=== PATIENT | male | born 1955 | race Two or more races ===

== ENCOUNTER 2019-04-11 23:29 | Emergency (ER) | payer OTHER ==
[2019-04-11 23:42] VITALS: BP 170/99; PULSE 78; TEMP 97.9; BMI 27.3
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
[2019-04-12] MEDS ORDERED: morphine CARPU-JECT 4 MG/1 ML DISP.SYRIN IVPUSH ONE (00:05)
[2019-04-12] MEDS ORDERED: DIPHTH,PERTUSS(ACELL),TET 0.5 ML DISP.SYRIN IM ONE ×3 (00:05→00:47)
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
[2019-04-12] MEDS ORDERED: morphine SULFATE 4 MG/ML VIAL ONE (00:23)
[2019-04-12] MEDS ORDERED: LIDOCAINE HCL 1%, 10 MG/ML (20ML VIAL) ONE (00:45)
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
== END 2019-04-12 03:00 | disposition home or self-care (01) ==
LOC: JER 23:29
PROC: 3E0234Z Introduction of Serum, Toxoid and Vaccine into Muscle, Percutaneous Approach (ICD-10-PCS; principal; 2019-04-11)
PROC: 3E033NZ Introduction of Analgesics, Hypnotics, Sedatives into Peripheral Vein, Percutaneous Approach (ICD-10-PCS; 2019-04-11)
PROC: 0HQ1XZZ Repair Face Skin, External Approach (ICD-10-PCS; 2019-04-11)
DX: S01.81XA Laceration without foreign body of other part of head, initial encounter (principal); Y04.2XXA Assault by strike against or bumped into by another person, initial encounter; Y93.89 Activity, other specified; Y92.481 Parking lot as the place of occurrence of the external cause
CPT/HCPCS: 70450-TC; 70486-TC; 90715; 99282-25

== ENCOUNTER 2019-11-20 14:12 | Emergency (ER) | payer OTHER ==
[2019-11-20 14:32] VITALS: BMI 26.6
[2019-11-20] MEDS ORDERED: DIPHTH,PERTUSS(ACELL),TET 0.5 ML DISP.SYRIN IM ONE ×2 (14:32→14:39)
[2019-11-20] MEDS ORDERED: ACETAMINOPHEN 500 MG TABLET (FP) PO ONE (14:39)
[2019-11-20] MEDS ORDERED: BACITRACIN 0.9 GM PACKET TP ONE (14:40)
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
[2019-11-20] MEDS ORDERED: ACETAMINOPHEN 325 MG TABLET (FP) ONE (14:45)
[2019-11-20] MEDS ORDERED: BACITRACIN 0.9 GM PACKET ONE (14:45)
[2019-11-20 16:58] VITALS: BP 143/67; PULSE 87; TEMP 98
== END 2019-11-20 16:59 | disposition home or self-care (01) ==
LOC: SUPCPDRO 14:12 → JER 14:12
PROC: 3E0234Z Introduction of Serum, Toxoid and Vaccine into Muscle, Percutaneous Approach (ICD-10-PCS; principal; 2019-11-20)
PROC: 0HQLXZZ Repair Left Lower Leg Skin, External Approach (ICD-10-PCS; principal; 2019-11-20)
DX: S93.401A Sprain of unspecified ligament of right ankle, initial encounter (principal); S91.012A Laceration without foreign body, left ankle, initial encounter; V28.0XXA Motorcycle driver injured in noncollision transport accident in nontraffic accident, initial encounter
CPT/HCPCS: 73610-TC-LT-FY; 73610-TC-RT-FY; 90715; 99284-25

== ENCOUNTER 2021-08-04 01:05 | Emergency (ER) | payer OTHER ==
[2021-08-04 01:17] VITALS: BP 139/84; PULSE 78; TEMP 98.4; BMI 26.6
[2021-08-04 02:01] LABS: BASO % 0.5 % (0-2.0); EOS % 0.9 % (0-4.5); HEMATOCRIT 38.5 % (35.4-49); LYMPH % 11.1 % (8-40); MCH 29.2 pg (25.7-33.7); MCHC 33.9 g/dl (32.0-35.9); MEAN CELL VOLUME 86.1 fl (80-96); MEAN PLT VOLUME 9.8 fl (7.5-11.1); MONO % 9.3 % (3.8-10.2); NEUT % 78.2 % (42.8-82.8); PLATELET COUNT 123 10^3/uL (134-434); RBC 4.47 M/mm3 (4.00-5.60)
[2021-08-04 02:12] LABS: INR 1.14 (0.83-1.09); PROTHROMBIN TIME (PATIENT) 13.1 SEC (9.7-13.0)
[2021-08-04 02:15] LABS: ACTIVATED PTT 27.9 SECONDS (25.2-36.5)
[2021-08-04 02:22] LABS: CALCIUM 8.3 mg/dL (8.5-10.1)
[2021-08-04 02:23] LABS: BLOOD UREA NITROGEN 25.3 mg/dL (7-18); MAGNESIUM 2.1 mg/dL (1.8-2.4)
[2021-08-04 02:26] LABS: CREATININE 1.6 mg/dL (0.55-1.3)
[2021-08-04 02:28] LABS: BILIRUBIN,TOTAL 1.3 mg/dL (0.2-1)
[2021-08-04] MEDS ORDERED: SODIUM CHLORIDE 0.9% 500 ML INFUS.BAG IV ONE (03:00)
[2021-08-04 04:49] LABS: EPI CELLS 21 /uL (0-25.1); HYALINE CASTS 19 /uL (0-3.1); PH,URINE 5.5 (5.0-8.0); URINE APPEARANCE CLEAR; URINE BACTERIA 2 /uL (0-1359); URINE BILIRUBIN 1+ (NEGATIVE); URINE COLOR DK YELLOW; URINE GLUCOSE (UA) NEGATIVE (NEGATIVE); URINE KETONE TRACE (NEGATIVE); URINE LEUK ESTERASE NEGATIVE (NEGATIVE); URINE NITRITE NEGATIVE (NEGATIVE); URINE PROTEIN 1+ (NEGATIVE); URINE RBC 14 /uL (0-23.9); URINE WBC 25 /uL (0-25.8)
== END 2021-08-04 04:50 | disposition left against medical advice (07) ==
LOC: JER 01:05
DX: R55 Syncope and collapse (principal); R00.2 Palpitations; N17.9 Acute kidney failure, unspecified; S02.2XXA Fracture of nasal bones, initial encounter for closed fracture; R07.9 Chest pain, unspecified; Y99.8 Other external cause status
CPT/HCPCS: 36415; 70450-TC; 71045-TC-FY; 72125-TC; 80053; 81003; 83735; 84443; 84484; 85025; 85610; 85730; 87086; 93005; 93010; 99285-25

== ENCOUNTER 2022-01-21 19:10 | Emergency (ER) | payer OTHER ==
[2022-01-21 19:36] VITALS: TEMP 98.4; BMI 26.3
[2022-01-21] MEDS ORDERED: ACETAMINOPHEN 1000 MG/100 ML BAG IVPB ONE (19:50)
[2022-01-21 20:21] LABS: BASO % 0.2 % (0-2.0); EOS % 0.6 % (0-4.5); HEMATOCRIT 39.8 % (35.4-49); HEMOGLOBIN 13.3 GM/dL (11.7-16.9); LYMPH % 12.4 % (8-40); MCHC 33.5 g/dl (32.0-35.9); MEAN CELL VOLUME 86.4 fl (80-96); MEAN PLT VOLUME 9.6 fl (7.5-11.1); MONO % 6.7 % (3.8-10.2); NEUT % 80.1 % (42.8-82.8); PLATELET COUNT 145 10^3/uL (134-434); RBC 4.61 M/mm3 (4.00-5.60); RDW 14.1 % (11.9-15.9); WHITE BLOOD COUNT 6.9 K/mm3 (4.0-10.0)
[2022-01-21 20:34] LABS: INR 1.15 (0.83-1.09); PROTHROMBIN TIME (PATIENT) 13.2 SEC (9.7-13.0)
[2022-01-21 20:36] LABS: ACTIVATED PTT 28.4 SECONDS (25.2-36.5)
[2022-01-21 20:39] LABS: CALCIUM 8.8 mg/dL (8.5-10.1)
[2022-01-21 20:40] LABS: ALBUMIN 3.9 g/dl (3.4-5.0)
[2022-01-21 20:43] LABS: CREATININE 1.4 mg/dL (0.55-1.3)
[2022-01-21 20:45] LABS: BILIRUBIN,TOTAL 1.1 mg/dL (0.2-1); TOT PROT 7.1 g/dl (6.4-8.2)
[2022-01-21] MEDS ORDERED: CEFAZOLIN 2 GM in DEXTROSE 5%-WATER - 50 ML IVPB ONE (21:31)
[2022-01-21] MEDS ORDERED: SODIUM CHLORIDE 0.9% 500 ML INFUS.BAG IV ONE (21:44)
[2022-01-21] MEDS ORDERED: CEFAZOLIN SODIUM 2 GM in DEXTROSE 5%-WATER 100 ML IVPB ONE (21:46)
[2022-01-21] MEDS ORDERED: morphine CARPU-JECT 4 MG/1 ML DISP.SYRIN IVPUSH ONE (22:33)
[2022-01-21] MEDS ORDERED: morphine SULFATE 4 MG/ML VIAL ONE (23:15)
[2022-01-22 00:29] VITALS: BP 130/83; PULSE 68; RESP 19
== END 2022-01-21 23:40 | disposition short-term general hospital (02) ==
LOC: JER 19:10
PROC: 3E033GC Introduction of Other Therapeutic Substance into Peripheral Vein, Percutaneous Approach (ICD-10-PCS; principal; 2022-01-21)
DX: S51.812A Laceration without foreign body of left forearm, initial encounter (principal); X99.1XXA Assault by knife, initial encounter
CPT/HCPCS: 36415; 73206-TC-RT; 80053; 85025; 85610; 85730; 86850; 86900; 86901; 93005; 93010; 96365; 96375; 99285-25; C9803-CS; Q9967; U0003; U0005

== ENCOUNTER 2022-12-09 20:36 | Observation (INO) | payer OTHER ==
[2022-12-09] MEDS ORDERED: SODIUM CHLORIDE 0.9% 500 ML INFUS.BAG IV ONE (21:30)
[2022-12-09 21:56] LABS: BASO % 0.2 % (0-2.0); HEMATOCRIT 42.5 % (35.4-49); MCH 28.4 pg (25.7-33.7); MCHC 32.9 g/dl (32.0-35.9); MEAN CELL VOLUME 86.3 fl (80-96); MEAN PLT VOLUME 9.7 fl (7.5-11.1); MONO % 19.9 % (3.8-10.2); NEUT % 65.9 % (42.8-82.8); PLATELET COUNT 126 10^3/uL (134-434); RBC 4.93 M/mm3 (4.00-5.60); RDW 14.9 % (11.9-15.9)
[2022-12-09 21:57] LABS: URINE APPEARANCE CLEAR; URINE BILIRUBIN NEGATIVE (NEGATIVE); URINE COLOR YELLOW; URINE GLUCOSE (UA) NEGATIVE (NEGATIVE); URINE KETONE NEGATIVE (NEGATIVE); URINE LEUK ESTERASE NEGATIVE (NEGATIVE); URINE NITRITE NEGATIVE (NEGATIVE); URINE PROTEIN NEGATIVE (NEGATIVE); URINE UROBILINOGEN 0.2 mg/dL (0.2-1.0)
[2022-12-09 22:10] LABS: POTASSIUM 4.6 mmol/L (3.5-5.1)
[2022-12-09 22:12] LABS: BLOOD UREA NITROGEN 18.7 mg/dL (7-18); CALCIUM 8.7 mg/dL (8.5-10.1)
[2022-12-09 22:16] LABS: CREATININE 1.3 mg/dL (0.55-1.3)
[2022-12-09 22:17] LABS: BILIRUBIN,TOTAL 1.6 mg/dL (0.2-1)
[2022-12-10] MEDS ORDERED: amLODIPine BESYLATE 5 MG TABLET (FP) PO ONE (00:56)
[2022-12-10] MEDS ORDERED: LISINOPRIL 10 MG TABLET PO ONE (00:56)
[2022-12-10] MEDS ORDERED: LISINOPRIL 10 MG TABLET ONE (01:25)
[2022-12-10] MEDS ORDERED: amLODIPine BESYLATE 5 MG TABLET (FP) ONE (01:25)
[2022-12-10 02:47] VITALS: BMI 26.6
[2022-12-10 08:52] LABS: HEMATOCRIT 40.8 % (35.4-49); HEMOGLOBIN 13.2 GM/dL (11.7-16.9); MCH 28.2 pg (25.7-33.7); MCHC 32.5 g/dl (32.0-35.9); MEAN CELL VOLUME 86.8 fl (80-96); MEAN PLT VOLUME 11.4 fl (7.5-11.1); PLATELET COUNT 139 10^3/uL (134-434); RDW 14.5 % (11.9-15.9); WHITE BLOOD COUNT 5.1 K/mm3 (4.0-10.0)
[2022-12-10 09:00] LABS: POTASSIUM 4.2 mmol/L (3.5-5.1)
[2022-12-10 09:04] LABS: BLOOD UREA NITROGEN 14.4 mg/dL (7-18); CALCIUM 8.7 mg/dL (8.5-10.1)
[2022-12-10 09:07] LABS: CREATININE 1.1 mg/dL (0.55-1.3)
[2022-12-10] MEDS ORDERED: LISINOPRIL 10 MG TABLET PO SCH (10:00)
[2022-12-10] MEDS ORDERED: amLODIPine BESYLATE 10 MG TABLET (FP) PO SCH (10:00)
[2022-12-10] MEDS ORDERED: ENOXAPARIN NA (PORCINE) 40 MG/0.4 ML DISP.SYRIN SQ SCH (10:00)
[2022-12-10 12:14] VITALS: PULSE 70
[2022-12-10 14:20] VITALS: BP 133/83; RESP 20; TEMP 98
== END 2022-12-10 16:41 | disposition home or self-care (01) ==
LOC: JER 20:36 → JERBED 12-10 01:00 → J4W 12-10 02:27
PROVIDERS: ADMIT Internal Medicine; ATTEND Internal Medicine
PROC: 3E023GC Introduction of Other Therapeutic Substance into Muscle, Percutaneous Approach (ICD-10-PCS; principal; 2022-12-10)
PROC: 3E0337Z Introduction of Electrolytic and Water Balance Substance into Peripheral Vein, Percutaneous Approach (ICD-10-PCS; 2022-12-10)
DX: R77.8 Other specified abnormalities of plasma proteins (principal); R07.9 Chest pain, unspecified; N28.9 Disorder of kidney and ureter, unspecified; Z29.8 Encounter for other specified prophylactic measures; I10 Essential (primary) hypertension; Z85.46 Personal history of malignant neoplasm of prostate
CPT/HCPCS: 36415; 71045-TC-FY; 80048; 80053; 81003; 82550; 82553; 84484; 85025; 85027; 85379; 87086; 93005; 93010; 93306-TC; 96372; 99285-25; G0378